=== PATIENT | male | born 2000 | race Caucasian/White ===

== ENCOUNTER 2022-11-22 16:20 | Emergency (ER) | payer OTHER ==
[~2022-11-22] VITALS: Ht 175.3 cm; Wt 79.1 kg
[2022-11-22 16:44] VITALS: TEMP 98.3
[2022-11-22 20:20] VITALS: BP 118/81; PULSE 68
== END 2022-11-22 20:20 | disposition home or self-care (01) ==
LOC: COL.ER 16:20
DX: K59.00 Constipation, unspecified (principal); Z28.310 Unvaccinated for COVID-19